=== PATIENT | male | born 1980 | race Caucasian/White ===

== ENCOUNTER 2018-05-10 22:58 | Emergency (ER) | payer SELFPAY ==
[~2018-05-10] VITALS: Ht 177.8 cm; Wt 86.2 kg
[2018-05-10 23:11] VITALS: BP 132/75
--- NOTE | 2018-05-10 23:20 | PHYS DOC ---
Past Medical History Past Medical History: HIV, Other Additional Past Medical Histor: HIV POSITIVE Additional Past Surgical Histo: KNEE, BACK, NECK Alcohol Use: None Drug Use: None Adult General Chief Complaint Chief Complaint: FLU SYMPTOM HPI HPI Patient is a 37 year old male with history of HIV, who presents to the ED today complaining of a productive cough, nasal congestion, body aches, chills, symptoms for 4 days. Review of Systems Review of Systems Constitutional: Reports body aches and chills, denies fever Eyes: Denies change in visual acuity, redness, or eye pain [] HENT: Reports nasal congestion, sore throat [] Respiratory: Reports cough, denies shortness of breath [] Cardiovascular: No additional information not addressed in HPI [] GI: Denies abdominal pain, nausea, vomiting, bloody stools or diarrhea [] : Denies dysuria or hematuria [] Musculoskeletal: Denies back pain or joint pain [] Integument: Denies rash or skin lesions [] Neurologic: Denies headache, focal weakness or sensory changes [] All other systems were reviewed and found to be within normal limits, except as documented in this note. Allergies Allergies Allergies Coded Allergies Type Severity Reaction Last Updated Verified No Known Drug Allergies 05/10/18 No Physical Exam Physical Exam Constitutional: Well developed, well nourished, no acute distress, non-toxic appearance. [] HENT: Normocephalic, atraumatic, bilateral external ears normal, oropharynx moist, no oral exudates, nose normal. [] Eyes: PERRLA, EOMI, conjunctiva normal, no discharge. [] Neck: Normal range of motion, no tenderness, supple, no stridor. [] Cardiovascular:Heart rate regular rhythm, no murmur [] Lungs & Thorax: Bilateral breath sounds clear to auscultation [] Abdomen: Bowel sounds normal, soft, no tenderness, no masses, no pulsatile masses. [] Skin: Warm, dry, no erythema, no rash. [] Back: No tenderness, no CVA tenderness. [] Extremities: No tenderness, no cyanosis, no clubbing, ROM intact, no edema. [] Neurologic: Alert and oriented X 3, normal motor function, normal sensory function, no focal deficits noted. [] Psychologic: Affect normal, judgement normal, mood normal. [] Current Patient Data Vital Signs Vital Signs Date Time Temp Pulse Resp B/P (MAP) Pulse Ox O2 Delivery O2 Flow Rate FiO2 05/10/18 23:11 98.6 86 18 132/75 (94) 96 Room Air 98.6 Lab Values Laboratory Tests Test 05/10/18 23:12 Influenza Type A Antigen Negative (NEGATIVE) Influenza Type B Antigen Negative (NEGATIVE) EKG EKG [] Radiology/Procedures Radiology/Procedures [] Course & Med Decision Making Course & Med Decision Making Pertinent Labs and Imaging studies reviewed. (See chart for details) This is a 37-year-old male patient presented to the ED today with flulike symptoms including productive cough, nasal congestion, body aches and chills. Patient is afebrile in the ED, chest x-ray interpreted by radiologist as negative for any acute findings, negative for influenza A or B. Symptoms are likely viral. Will be discharged with Flonase nasal spray, albuterol inhaler and instructed to take sbec-nrh-nndtyqt cough medications as needed. Dragon Disclaimer Dragon Disclaimer This electronic medical record was generated, in whole or in part, using a voice recognition dictation system. Departure Departure Impression: Primary Impression: Upper respiratory infection Additional Impressions: Cough Body aches Disposition: HOME, SELF-CARE Condition: STABLE Patient Instructions: Cough, Adult, Jnzv-it-[id number], Upper Respiratory Infection, Adult, Fnyz-kz-Gzgm Additional Instructions: You were evaluated in the emergency room with upper respiratory infection symptoms. You can take srto-vsh-sxzdiln cough and cold medications as needed. You can also use the prescribed medications as ordered. Follow-up with your doctor in the next 1 week. Scripts Benzonatate (TESSALON PERLE) 100 Mg Capsule 1 CAP PO TID, #30 CAP Prov: MUTUNGAELOY BENEFITS ADVISOR 05/11/18 Fluticasone Propionate (Flonase Allergy Relief) 9.9 Ml [place].susp 2 SPRAYS NS DAILY, #1 BOTTLE Prov: MUTUNGA,ELOY BENEFITS ADVISOR 05/11/18 Albuterol Sulfate (VENTOLIN HFA INHALER) 18 Gm Hfa.aer.ad 2 PUFF INH Q4HRS for FOR ASTHMA, #1 INHALER 0 Refills Prov: MUTUNGA,ELOY BENEFITS ADVISOR 05/11/18 Problem Qualifiers Primary Impression: Upper respiratory infection URI type: unspecified URI Qualified Codes: J06.9 - Acute upper respiratory infection, unspecified ELOY SAAVEDRA APRN May 10, 2018 23:20
--- NOTE | 2018-05-10 23:37 | RAD ---
PA and lateral chest. HISTORY: Cough PA and lateral views were taken of the chest. Lungs are clear. Heart is normal in size without heart failure. There is no effusion. IMPRESSION: 1. No acute chest disease. Electronically signed by: Sundar Mcmahan MD (05/10/2018 11:33 PM) [facility]
[2018-05-10 23:48] LABS: INFLUENZA A PATIENT NEGATIVE (NEGATIVE); INFLUENZA B PATIENT NEGATIVE (NEGATIVE)
[2018-05-11] MEDS ORDERED: FLUT9.9S NS (00:08)
[2018-05-11] MEDS ORDERED: BENZ100C PO (00:08)
[2018-05-11] MEDS ORDERED: VENTOLIN HFA18 GM INH (00:08)
== END 2018-05-11 00:12 | disposition home or self-care (01) ==
LOC: ER 22:58
DX: J06.9 Acute upper respiratory infection, unspecified (principal); M79.18 Myalgia, other site; R68.83 Chills (without fever)
CPT/HCPCS: 71046; 87804; 99284